=== PATIENT | male | born 1960 | race Caucasian/White ===

== ENCOUNTER → 2018-02-11 | Outpatient (CLI) | payer BC | LOC: M WUC 16:17 | DX: M25.552 Pain in left hip (principal) ==

== ENCOUNTER 2019-04-15 05:41 | Day surgery (SDC) | payer BC ==
[~2019-04-15] VITALS: Ht 180.3 cm; Wt 115.1 kg
[~2019-04-15 05:41] MED LIST: BAYE325T12 PO; CLAR10CA3 PO; FLON1SPR NARES; IBUP200C25 PO; MULTCAP PO; TRAZ-252 PO; ZANT150T40 PO
[2019-04-15] MEDS ORDERED: LR 1,000 ML IV ONE (07:00)
[2019-04-15] MEDS ORDERED: ceFAZolin SOD 1 GM in D5W MINI-BAG PLUS 50 ML IV ONE (07:00)
[2019-04-15] MEDS ORDERED: BUPIVACAINE/EPIN 0.25% 30 ML VIAL As Ordered ONE (07:09)
[2019-04-15] MEDS ORDERED: PROPOFOL 200 MG/20 ML VIAL As Ordered ONE (07:14)
[2019-04-15] MEDS ORDERED: LIDOCAINE 2% INJ 100 MG/5 ML SDV (FOR ANES.) As Ordered ONE (07:14)
[2019-04-15] MEDS ORDERED: ROCURONIUM BROMIDE 50 MG/5 ML VIAL As Ordered ONE ×2 (07:14→08:04)
[2019-04-15] MEDS ORDERED: fentaNYL 250 MCG/5 ML INJECTION (J3010) As Ordered ONE (07:15)
[2019-04-15] MEDS ORDERED: MIDAZOLAM INJ 2 MG/2 ML VIAL (J2250) As Ordered ONE (07:15)
[2019-04-15] MEDS ORDERED: ONDANSETRON 4MG/2ML VIAL (J2405) As Ordered ONE (08:39)
[2019-04-15] MEDS ORDERED: KETOROLAC 60 MG/2 ML VIAL (J1885) As Ordered ONE (08:39)
[2019-04-15] MEDS ORDERED: METOCLOPRAMIDE INJ 10MG/2ML VIAL (J2765) As Ordered ONE (08:39)
[2019-04-15] MEDS ORDERED: ACETAMINOPHEN 1000MG 100ML IV BTL (OFIRMEV) (J0131 PER 10MG) As Ordered ONE (08:39)
[2019-04-15] MEDS ORDERED: dexameTHASONE 4 MG/ML 1ML VIAL (J1100) As Ordered ONE (08:39)
[2019-04-15] MEDS ORDERED: SUGAMMADEX SODIUM 500 MG/5 ML VIAL (BRIDION) As Ordered ONE (08:55)
--- NOTE | 2019-04-15 09:15 | RO ---
DATE OF PROCEDURE: 04/15/2019 PREOPERATIVE DIAGNOSIS: Left inguinal hernia. POSTOPERATIVE DIAGNOSIS: Left inguinal hernia (indirect left inguinal hernia). PROCEDURE: Robotic-assisted left inguinal hernia repair with ProGrip mesh. SURGEON: Shahid Garnica Jr., MD SIGNAL CONSTRUCTOR: Cate Parr (provided instrument exchange, trocar placement, trocar removal, and abdominal wall closure) ANESTHESIA: General endotracheal anesthesia. ESTIMATED BLOOD LOSS (EBL): Minimal. FLUIDS: Crystalloid. DESCRIPTION OF PROCEDURE: Brief procedure summary: The patient was brought to the operating room and was given general anesthesia. After adequate anesthesia and preoperative antibiotics were given, the patient was prepped and draped in the usual sterile fashion. Next, a supraumbilical incision was made with skin knife. Blunt dissection was carried down to fascia. Fascia was entered with a Veress needle, insufflated to 15 mm of pressure. A dilating 10-mm trocar was placed at this time; and under direct visualization, two lateral 8-mm trocars were placed. The patient was placed in a Trendelenburg position, and the robot was docked. The patient had the sigmoid colon in the hernia sac, but it reduced quite easily. In any case, once the robot was docked, the peritoneum was taken down with monopolar cut scissors and the peritoneum mobilized with a combination of blunt and sharp dissection, as well as electrocautery. The peritoneal flap was taken down quite nicely off Jelani ligament off the backside of the pubis and off the cord structures, as well as bringing the indirect hernia out of the inguinal canal. This was taken off the vas to where it dove deep; and once adequate mobilization was appreciated, there was an obvious but small lipoma in the cord which was mobilized off the cord structures and transected at its base, left in the preperitoneal area after dissection and transection. The mesh was pressed into the appropriate position, and the peritoneum was closed with 3-0 V-Loc. All trocars were removed under direct visualization. 4-0 Vicryl was used to close all incisions. Steri-Strips and a dry sterile dressing were applied. The patient was awakened, extubated, brought to the recovery room awake, alert, and hemodynamically stable. Sponge and needle counts correct times two.
[2019-04-15] MEDS ORDERED: oxyCODONE 5MG TAB PO PRN (09:30)
[2019-04-15] MEDS ORDERED: NORCO, ANEXSIA 5/325MG TABLET (HYDROcodone/ACETAMINOPHEN) PO PRN (09:30)
[2019-04-15] MEDS ORDERED: fentaNYL 100 MCG/2 ML INJECTION (J3010) IV PRN (09:30)
[2019-04-15] MEDS ORDERED: ONDANSETRON 4MG/2ML VIAL (J2405) IV PRN (09:30)
[2019-04-15] MEDS ORDERED: LR 1,000 ML IV SCH ×2 (09:30)
[2019-04-15 11:10] VITALS: BP 127/66
--- NOTE | 2019-04-15 23:27 | ECGEPIP ---
[facility] Test Date: 2019-04-15 Pat Name: KACY PASTRANA Department: Room: - Gender: Male Customer Advisor Specialist: MARYCHUY : 1960 Requested By: ELIAS Judd Order Number: [id number] Reading MD: Yony Campuzano Measurements Intervals [place] Rate: 55 P: 60 VT: 183 QRS: 25 QRSD: 106 T: 22 QT: 457 QTc: 438 Interpretive Statements SINUS BRADYCARDIA Otherwise within normal limits. No prior ECG available for comparison at the time of interpretation. Electronically Signed on 04-15-2019 23:27:29 EDT by Yony Campuzano
== END 2019-04-15 11:15 | disposition home or self-care (01) ==
LOC: M SDC 05:41
PROVIDERS: ATTEND Surgery
DX: K40.90 Unilateral inguinal hernia, without obstruction or gangrene, not specified as recurrent (principal); Z79.82 Long term (current) use of aspirin; Z79.899 Other long term (current) drug therapy
CPT/HCPCS: 49650; 93005; C1781; J0131; J0690; J1100; J1885; J2250; J2405; J2765; J3010

== ENCOUNTER → 2021-06-15 | Outpatient (CLI) | payer BC, OTHER ==
[~2021-06-15] MED LIST changes: +CIAL10TA PO; +MULTTAB12 PO
== END ==
LOC: M LABSMTC 09:49
PROVIDERS: ATTEND Anesthesiology
DX: Z01.812 Encounter for preprocedural laboratory examination (principal); Z20.822 Contact with and (suspected) exposure to COVID-19

== ENCOUNTER 2021-06-20 06:57 | Day surgery (SDC) | payer OTHER ==
[~2021-06-20] VITALS: Ht 180.3 cm; Wt 91.1 kg
[~2021-06-20 06:57] MED LIST changes: +NS 1,000 ML IV ONE
[2021-06-20] MEDS ORDERED: propofoL 200 MG/20 ML VIAL As Ordered ONE (07:39)
--- NOTE | 2021-06-20 07:53 | ROOR ---
Patient Name: Thanh Lynn Procedure Date: 06/20/2021 7:31 AM Date of : 1960 Age: 60 Room: [facility] Gender: Male Note Status: Finalized Procedure: Total Colonoscopy to Cecum Indications: Screening for colorectal malignant neoplasm, Last colonoscopy: 2010 Providers: Angus Lo MD Referring MD: Arsalan Renee MD Requesting Provider: Medicines: Monitored Anesthesia Care Complications: No immediate complications. Procedure: Pre-Anesthesia Assessment: - The heart rate, respiratory rate, oxygen saturations, blood pressure, adequacy of pulmonary ventilation, and response to care were monitored throughout the procedure. The Colonoscope was introduced through the anus and advanced to the cecum, identified by appendiceal orifice and ileocecal valve. The colonoscopy was performed without difficulty. The patient tolerated the procedure well. The quality of the bowel preparation was excellent. Findings: The perianal and digital rectal examinations were normal. Non-bleeding internal hemorrhoids were found during retroflexion. The hemorrhoids were small and Grade I (internal hemorrhoids that do not prolapse). Multiple small and large-mouthed diverticula were found in the recto-sigmoid colon, sigmoid colon and descending colon. The exam was otherwise without abnormality on direct and retroflexion views. Impression: - Non-bleeding internal hemorrhoids. - Diverticulosis in the recto-sigmoid colon, in the sigmoid colon and in the descending colon. - The examination was otherwise normal on direct and retroflexion views. - No specimens collected. - The exam was otherwise normal to the cecum. Recommendation: - Patient has a contact number available for emergencies. The signs and symptoms of potential delayed complications were discussed with the patient. Return to normal activities tomorrow. Written discharge instructions were provided to the patient. - High fiber diet. - Discharge patient to home. - Continue present medications. - Repeat colonoscopy in 10 years for screening purposes. - Return to referring physician. - The findings and recommendations were discussed with the patient. Procedure Code(s): --- Professional --- 76682, Colonoscopy, flexible; diagnostic, including collection of specimen(s) by brushing or washing, when performed (separate procedure) Diagnosis Code(s): --- Professional --- Z12.11, Encounter for screening for malignant neoplasm of colon K64.0, First degree hemorrhoids K57.30, Diverticulosis of large intestine without perforation or abscess without bleeding CPT copyright 2019 [employer]. All rights reserved. The codes documented in this report are preliminary and upon senior construction manager review may be revised to meet current compliance requirements. Angus Lo MD Angus Lo MD 06/20/2021 7:52:12 AM Electronically signed by Angus Lo MD Number of Addenda: 0 Note Initiated On: 06/20/2021 7:31 AM Estimated Blood Loss: Estimated blood loss: none.
[2021-06-20 08:13] VITALS: BP 112/66
== END 2021-06-20 08:15 | disposition home or self-care (01) ==
LOC: M OPP 06:57
PROVIDERS: ATTEND Internal Medicine Gastroenterology
DX: Z12.11 Encounter for screening for malignant neoplasm of colon (principal); K57.30 Diverticulosis of large intestine without perforation or abscess without bleeding; K64.8 Other hemorrhoids; Z79.82 Long term (current) use of aspirin; Z79.899 Other long term (current) drug therapy; Z87.891 Personal history of nicotine dependence